=== PATIENT | female | born 1945 | race Caucasian/White ===

== ENCOUNTER 2019-09-15 11:20 | Inpatient (IN) | payer MEDICARE, BC ==
[~2019-09-15] VITALS: Ht 162.6 cm; Wt 74.3 kg
[2019-09-15] VITALS (211 sets, daily range): BP systolic 107; BP diastolic 89; PULSE 65; TEMP 98.4; O2SAT 86–100
[~2019-09-15 11:20] MED LIST: ASPIRIN 32325 MG/TAB PO; CAPOTEN 50MG50 MG PO; CAPOTEN12.5 MG PO; DILANTIN 100MG100 MG PO; FIORINAL 325 MG1 CAP PO; LIPITOR; LIPITOR 10MG10 MG PO; MULTIPLE VITAMI1 CAP PO; PLENDIL 5MG TAB5 MG PO; VITAMIN D 1001000 IU PO
[2019-09-15 12:04] LABS: BASO % 0.2 % (0.0-2.0); HEMATOCRIT 45.2 % (37.0-47.0); HEMOGLOBIN 15.1 g/dl (12.5-16.0); LYMPH # 1.3 (1.2-3.4); LYMPH % 6.9 % (20.0-51.0); MEAN CELL VOLUME 92 fl (80.0-100.0); MEAN CORPUSCULAR HEMOGLOBIN 31 pg (27.0-31.0); MEAN CORPUSCULAR HGB CONC 33 g/dl (33.0-37.0); MEAN PLATELET VOLUME 9.2 fl (7.4-10.4); MONO % 5.4 % (1.7-9.3); PLATELET COUNT 278 K/mm3 (130-400); RED BLOOD COUNT 4.89 M/mm3 (4.10-5.30); REDCELL DISTRIBUTION WIDTH-CV 15.9 % (11.5-14.5)
[2019-09-15 12:09] LABS: PROTHROMBIN TIME 11.3 SECONDS (9.7-12.8)
[2019-09-15 12:15] LABS: ALBUMIN 4.5 gm/dL (3.5-5.0); BILIRUBIN,TOTAL 0.5 mg/dL (0.0-1.0); C-REACTIVE PROTEIN 6.1 mg/dL (0.0-0.9); CALCIUM 9.6 mg/dL (8.4-10.2); CREATININE, serum 3.15 (0.52-1.25); POTASSIUM 3.6 mmol/L (3.4-5.0); TOTAL PROTEIN 7.5 gm/dL (6.4-8.2)
[2019-09-15] MEDS ORDERED: PLAVIX 75MG TAB75 MG PO (12:26)
[2019-09-15 12:30] LABS: TROPONIN-I 0.105 ng/mL (0.000-0.035)
--- NOTE | 2019-09-15 14:30 | NUR ---
CALLED PLACED TO DR MARTIN. BLOOD CULTURES DRAWN AND DAPTOMYCIN GIVEN. ORDERS RECIEVED TO DC CENTRAL LINE, OK FOR NO IV ACCESS, AND TRANSFER PT TO FLOOR. CONTINUE ALL CURRENT ORDERS. FREELANCE PHOTOGRAPHER NOTIFIED OF NEED FOR MEDICAL BED.
--- NOTE | 2019-09-15 15:27 | NUR ---
1445: REMOVED PT'S LEFT FEMORAL CENTRAL LINE WITH STERILE TECHNIQUE. PRESSURE HELD FOR FIVE MINUTES. 1500: PT LAID FLAT FOR 15 MINUTES. NO SIGNS OF BLEEDING OR HEMATOMA. PT'S HOB RAISED TO 25 DEGREES. 1515: SITE C/D/I, AND NO SIGNS OF HEMATOMA. PT HEAD OF BEAD RAISED TO 50. WILL CONTINUE TO MONITOR.
--- NOTE | 2019-09-15 16:00 | NUR ---
PT ARRIVED FROM ER. PT STOOD AND PIVOTTED TO BED. PT'S IS AXOX3. PT'S VSS. PT ORIENTED TO ROOM AND FLOOR. DR LEMON NOTIFIED OF ARRIVAL. WILL CONTNUE TO MONITOR AND ASSESS.
--- NOTE | 2019-09-15 16:45 | NUR ---
PT HAD A MODERATE BLOODY STOOL UPON ARRIVAL TO ICU. NOTIFIED.
[2019-09-16] VITALS (481 sets, daily range): BP systolic 86–106; BP diastolic 40–61; PULSE 58–77; TEMP 97.4–99; O2SAT 64–100
[2019-09-16 09:34] LABS: BASO % 0.2 % (0.0-2.0); EOS % 0.1 % (0-4.0); GRAN # 8.9 (1.4-6.5); LYMPH # 1.6 (1.2-3.4); LYMPH % 14.1 % (20.0-51.0); MEAN CELL VOLUME 94 fl (80.0-100.0); MEAN CORPUSCULAR HGB CONC 33 g/dl (33.0-37.0); MEAN PLATELET VOLUME 9.5 fl (7.4-10.4); MONO # 0.5 (0.1-0.6); MONO % 4.2 % (1.7-9.3); REDCELL DISTRIBUTION WIDTH-CV 15.9 % (11.5-14.5)
[2019-09-16 09:42] LABS: HEMATOCRIT 32.8 % (37.0-47.0); HEMOGLOBIN 10.9 g/dl (12.5-16.0); MEAN CORPUSCULAR HEMOGLOBIN 31 pg (27.0-31.0); PLATELET COUNT 146 K/mm3 (130-400)
[2019-09-16 09:47] LABS: PROTHROMBIN TIME 11.8 SECONDS (9.7-12.8)
[2019-09-16 09:57] LABS: ALBUMIN 2.8 gm/dL (3.5-5.0); BILIRUBIN,TOTAL 0.3 mg/dL (0.0-1.0); CALCIUM 7.6 mg/dL (8.4-10.2); CREATININE, serum 2.17 (0.52-1.25); POTASSIUM 3.3 mmol/L (3.4-5.0); TOTAL PROTEIN 5.2 gm/dL (6.4-8.2)
[2019-09-16 10:13] LABS: TROPONIN-I 0.073 ng/mL (0.000-0.035)
[2019-09-16 11:08] LABS: COLLECTION METHOD CLEAN CATCH
[2019-09-16 11:17] LABS: MUCOUS Present /lpf; PH 5 (5-8); SQUAMOUS EPITHELIAL 0-2 /hpf; URINE APPEARANCE Cloudy; URINE BACTERIA Rare /hpf; URINE BILIRUBIN Negative (NEGATIVE); URINE BLOOD 2+ (NEGATIVE); URINE COLOR Yellow; URINE GLUCOSE Negative (NEGATIVE); URINE KETONE Negative (NEGATIVE); URINE LEUKOCYTE ESTERASE Negative (NEGATIVE); URINE NITRATE Negative (NEGATIVE); URINE PROTEIN(semi-quant) Negative (NEGATIVE); URINE RBC 0-2 /hpf; URINE UROBILINOGEN Negative (NEGATIVE)
--- NOTE | 2019-09-16 11:25 | NUR ---
1108: REPORT CALLED TO DAVID RN. ALL QUESTIONS ANSWERED. 1120: PT TAKEN UP TO 318 BY WHEEL CHAIR. PT'S BELONGINGS TAKEN WELL. DAVID BEDSIDE TO ACCEPT PT.
--- NOTE | 2019-09-16 11:30 | NUR ---
Patient to room 318 from ICU by wheelchair. Oriented patient to room and call light. Patient is A&O and reporting pain in right leg and abdomen. Did not request pain medication. VSS. 2L NC O2 100%, decreased O2 to 1L. Will reassess. No reported SOB. IV RT wrist, old drainage, patent, fluids infusing. Generalized brusing all over body. Patient instructed to call nursing staff for assistance with ambulation. No further needs expressed from patient. Call light within reach
--- NOTE | 2019-09-16 14:56 | NUR ---
Patient lives at home with her LICHA Miller (phone: [phone]) in [place], [place] and plans return home however, patient's is also in the hospital at [facility]. Patient is typically independent with daily living activities and has no durable medical equipment usages or anticipated needs at this time. Patient's son Joseluis Miller (phone: [phone]) is supportive of patient as needed. Patient's primary care physciain is Roberto Smiley, her [facility] is [facility], and she does have advance directives for healthcare completed and is a DNR. No further needs at this time and social media manager will follow as needed.
--- NOTE | 2019-09-16 18:04 | NUR ---
Patient sitting up in bed waiting on dinner to arrive. A&O. VSS. IV CDI coban covering, fluids infusing. Patient has had 2 small blood tinged BM's since arriving on the floor from the ICU. Reporting pain in right legs and buttocks. Stage II ulcer right buttocks, opento air. O2 weened off. Patient O2 sats 98 on room air. No reported SOB. No further needs expressed from patient. Call light within reach
--- NOTE | 2019-09-16 19:50 | NUR ---
Shift assessment complete. Pt resting in bed, awake, a&o, cooperative c cares. Pt denies pain or any other c/o at this time. IV patent. Tele in place. Pt denies further needs at this time. Call light in reach, bed alarm on. Will continue to monitor.
[2019-09-17] VITALS (7 sets, daily range): BP systolic 118–148; BP diastolic 52–67; PULSE 60–83; TEMP 97.9–98.7
[2019-09-17 06:06] LABS: INR 1.1 (0.8-3.0); PROTHROMBIN TIME 12.4 SECONDS (9.7-12.8)
[2019-09-17 06:10] LABS: ALBUMIN 2.7 gm/dL (3.5-5.0); BILIRUBIN,TOTAL 0.3 mg/dL (0.0-1.0); CREATININE, serum 1.55 (0.52-1.25); TOTAL PROTEIN 5.1 gm/dL (6.4-8.2)
[2019-09-17 06:12] LABS: BASO % 0.2 % (0.0-2.0); EOS % 0.3 % (0-4.0); GRAN # 7.2 (1.4-6.5); GRAN % 74.8 % (42.2-75.2); LYMPH # 1.8 (1.2-3.4); LYMPH % 18.4 % (20.0-51.0); MEAN CELL VOLUME 92 fl (80.0-100.0); MEAN CORPUSCULAR HGB CONC 34 g/dl (33.0-37.0); MEAN PLATELET VOLUME 9.7 fl (7.4-10.4); MONO # 0.5 (0.1-0.6); MONO % 5.5 % (1.7-9.3); PLATELET COUNT 165 K/mm3 (130-400); RED BLOOD COUNT 2.74 M/mm3 (4.10-5.30); REDCELL DISTRIBUTION WIDTH-CV 15.7 % (11.5-14.5)
[2019-09-17 06:13] LABS: HEMATOCRIT 25.1 % (37.0-47.0); HEMOGLOBIN 8.5 g/dl (12.5-16.0); MEAN CORPUSCULAR HEMOGLOBIN 31 pg (27.0-31.0)
--- NOTE | 2019-09-17 09:53 | NUR ---
Pt is awake and A/Ox4, laying in bed. Denies any pain or discomfort. IVF are infusing into right wrist. Per OT pt had episode of incontient loose stools this AM. Pt now resting back in bed. Denies any other needs.
--- NOTE | 2019-09-17 11:16 | NUR ---
SW met with the patient to review discharge plan and to discuss OT's recommendation of SNF. The patient reported no to a fdc facility. SW then discussed home health. The patient stated no to home health also. The patient reports that her is coming home from [facility] today and that she just wants to get home to take care of him. SW encouraged the patient to work with PT. The patient stated bring it on. SW to continue to follow.
--- NOTE | 2019-09-17 15:12 | NUR ---
Pt incontient of stool, cleaned and new linens applied. Stool is brown and loose. Pt repositioned in bed.
--- NOTE | 2019-09-17 15:26 | NUR ---
SW followed up with the patient to review PT's recommendation of SNF and not being ready to return home. The patient reports that she is not going anywhere. She states that she would be able to get up and go to the restroom on her own at home. SW discussed home health services again. The patient states no, due to it not being covered. SW educated the patient on how she would be covered at SNF and for home health. The patient reports that she wants to return home, but would think about it tonight. SW to follow up with the patient tomorrow morning and will continue to follow.
--- NOTE | 2019-09-17 18:32 | NUR ---
Pt had an overall uneventful day. Denies any needs.
[2019-09-17 18:58] LABS: HEMATOCRIT 34.6 % (37.0-47.0); HEMOGLOBIN 11.5 g/dl (12.5-16.0)
--- NOTE | 2019-09-17 19:45 | NUR ---
Shift assessment complete. Pt resting in bed, awake, a&o c int confused/forgetfull statements, cooperative c cares. Pt c/o cont abd pain; provided c PRN pain med per pt req. Pt denies any other c/o. IV patent. Tele in place. Pt s further needs. Call light in reach, bed alarm on. Will continue to monitor.
[2019-09-18 04:17] VITALS: BP 145/59; PULSE 66; TEMP 98.1
--- NOTE | 2019-09-18 08:00 | NUR ---
Patient is sitting up in recliner watching TV. Has flat affect. Denies pain. Respirations are even and nonlabored. Call light and personal items are within reach.
[2019-09-18 08:07] VITALS: BP 142/73; PULSE 59; TEMP 97.5
[2019-09-18 09:09] LABS: BASO % 0.3 % (0.0-2.0); EOS # 0.1 (0.0-0.7); EOS % 1.3 % (0-4.0); GRAN # 4.5 (1.4-6.5); GRAN % 70.1 % (42.2-75.2); HEMOGLOBIN 10.6 g/dl (12.5-16.0); LYMPH # 1.4 (1.2-3.4); LYMPH % 21.4 % (20.0-51.0); MEAN CELL VOLUME 92 fl (80.0-100.0); MEAN CORPUSCULAR HEMOGLOBIN 31 pg (27.0-31.0); MEAN CORPUSCULAR HGB CONC 34 g/dl (33.0-37.0); MEAN PLATELET VOLUME 9.8 fl (7.4-10.4); MONO # 0.4 (0.1-0.6); MONO % 6.4 % (1.7-9.3); PLATELET COUNT 162 K/mm3 (130-400); RED BLOOD COUNT 3.45 M/mm3 (4.10-5.30); REDCELL DISTRIBUTION WIDTH-CV 15.6 % (11.5-14.5)
[2019-09-18 09:17] LABS: PROTHROMBIN TIME 11.7 SECONDS (9.7-12.8)
[2019-09-18] MEDS ORDERED: ASPIRIN 81M81 MG/TA2 PO (09:17)
[2019-09-18] MEDS ORDERED: PROTONIX 40MG T40 MG PO (09:18)
[2019-09-18 09:19] LABS: HEMATOCRIT 31.6 % (37.0-47.0)
[2019-09-18] MEDS ORDERED: PLENDIL10 MG PO (09:27)
[2019-09-18] MEDS ORDERED: PRINIVIL20 MG PO (09:27)
[2019-09-18 09:30] LABS: ALBUMIN 2.9 gm/dL (3.5-5.0); BILIRUBIN,TOTAL 0.5 mg/dL (0.0-1.0); MAGNESIUM 1.4 mg/dL (1.6-2.3); POTASSIUM 3.3 mmol/L (3.4-5.0); TOTAL PROTEIN 5.5 gm/dL (6.4-8.2)
--- NOTE | 2019-09-18 09:36 | NUR ---
The patient's son, Joseluis, contacted AYDEE to discuss his concerns with the patient returning home and him wanting post-acute rehab for the patient. He states that him and the patient's will be coming up to the hospital this morning to talk to the visit and will notify SW when they arrive. SW to follow up with the patient and her family and will continue to follow.
--- NOTE | 2019-09-18 11:05 | NUR ---
The patient's and son (Joseluis) arrived at the hospital. SW met with the patient, patient's , and son and discussed PT/OT's recommendation of SNF and not being safe to return home. The patient's and son then discussed their concerns of her returning home. The patient was then agreeable to SNF. AYDEE presented and explained the Patient Choice Form and provided them with Medicare.gov's list of nursing homes. The patient and her family preferred 1) [facility] 2) [facility]. Patient Choice Form signed by the patient and she was provided a copy. AYDEE contacted and faxed a referral to Tameka at [facility]. AYDEE consulted IPR Director, Pina. SW awaiting their screens.
[2019-09-18 12:06] VITALS: BP 150/64; PULSE 63; TEMP 98.2
--- NOTE | 2019-09-18 13:47 | NUR ---
Tameka, at [facility], reports that they are able to accept the patient. AYDEE informed the patient and the patient's son, Joseluis, via phone. The patient is to discharge today, 09/18, to [facility] for a skilled stay. Transportation was arranged for 1530, via [facility]. AYDEE informed the patient, RN, and the patient's son via phone. They were all in agreeance to the time. AYDEE also presented and explained the IM form to the patient. The patient verbalized understanding, signed, and she was provided a copy. No additional needs at this time.
--- NOTE | 2019-09-18 18:36 | NUR ---
Patient discharged to retirement facility at 1600 via facility transportation. Personal belongings sent with patient.
== END 2019-09-18 16:00 | DRG 871 ==
LOC: COL.ER 11:20 → ICU 13:29 → MEDICAL 09-16 11:53
PROVIDERS: Emergency Medicine; Physician Assistant; ADMIT Internal Medicine
DX: A41.9 Sepsis, unspecified organism (principal); R57.1 Hypovolemic shock; I21.4 Non-ST elevation (NSTEMI) myocardial infarction; N17.9 Acute kidney failure, unspecified; D62 Acute posthemorrhagic anemia; K52.9 Noninfective gastroenteritis and colitis, unspecified; R65.20 Severe sepsis without septic shock; E78.00 Pure hypercholesterolemia, unspecified; I10 Essential (primary) hypertension; G40.909 Epilepsy, unspecified, not intractable, without status epilepticus; F17.210 Nicotine dependence, cigarettes, uncomplicated; E87.6 Hypokalemia; E83.42 Hypomagnesemia; Z79.82 Long term (current) use of aspirin; Z79.02 Long term (current) use of antithrombotics/antiplatelets; Z99.81 Dependence on supplemental oxygen
CPT/HCPCS: 99223-AI; 99232-AI; 99233-AI; 99239; C9113; J1720; J2405; J2543; J3480; J7030

== ENCOUNTER → 2023-01-04 | Outpatient (CLI) | payer MEDICARE, BC ==
[~2023-01-04] MED LIST changes: +ASPIRIN 81M81 MG/TA2 PO; +PLAVIX 75MG TAB75 MG PO; +PLENDIL10 MG PO; +PRINIVIL20 MG PO; +PROTONIX 40MG T40 MG PO
== END ==
LOC: COL.RAD 10:23
DX: I67.1 Cerebral aneurysm, nonruptured (principal); R90.82 White matter disease, unspecified; G31.9 Degenerative disease of nervous system, unspecified
CPT/HCPCS: Q9967

== ENCOUNTER 2023-07-14 13:54 | Inpatient (IN) | payer MEDICARE, BC ==
[~2023-07-14] VITALS: Ht 167.6 cm; Wt 82.2 kg
[2023-07-14] VITALS (355 sets, daily range): BP systolic 133; BP diastolic 62; PULSE 72; TEMP 97.8; O2SAT 90–100
[~2023-07-14 13:54] MED LIST changes: -LIPITOR 10MG10 MG PO; +LIPITOR 40MG TA40 MG PO
[2023-07-14 15:54] LABS: BASO % 0.4 % (0.0-2.0); GRAN # 9.6 K/mm3 (1.4-6.5); GRAN % 85.1 % (42.2-75.2); HEMATOCRIT 47.3 % (37.0-47.0); HEMOGLOBIN 15.3 g/dl (12.5-16.0); LYMPH # 0.6 K/mm3 (1.2-3.4); LYMPH % 4.9 % (20.0-51.0); MEAN CELL VOLUME 96 fl (80.0-100.0); MEAN CORPUSCULAR HEMOGLOBIN 31 pg (27-31); MEAN CORPUSCULAR HGB CONC 32 g/dl (33.0-37.0); MEAN PLATELET VOLUME 9.3 fl (7.4-10.4); MONO % 8.9 % (1.7-9.3); PLATELET COUNT 187 K/mm3 (130-400); RED BLOOD COUNT 4.95 M/mm3 (4.10-5.30); REDCELL DISTRIBUTION WIDTH-CV 15.9 % (11.5-14.5)
[2023-07-14 16:03] LABS: INR 1.4 (0.8-3.0); PROTHROMBIN TIME 15.5 SECONDS (9.7-12.8)
[2023-07-14 16:14] LABS: COLLECTION METHOD CLEAN CATCH
[2023-07-14 16:17] LABS: ALBUMIN 3.3 gm/dL (3.4-4.8); BILIRUBIN,TOTAL 0.4 mg/dL (0.2-1.2); CALCIUM 9.2 mg/dL (8.4-10.2); CREATININE, serum 1.52 mg/dL (0.57-1.11); TOTAL PROTEIN 5.5 gm/dL (6.2-8.1)
[2023-07-14 16:28] LABS: TROPONIN-I 0.077 ng/mL (0.00-0.033)
[2023-07-14 16:34] LABS: PH 5.5 (5.0-8.5); URINE APPEARANCE Clear (CLEAR/HAZY); URINE BLOOD Negative (NEGATIVE); URINE COLOR Amber (YELLOW); URINE GLUCOSE Negative (NEGATIVE); URINE KETONE TRACE (NEGATIVE); URINE NITRATE Negative (NEGATIVE); URINE PROTEIN(semi-quant) 2+ (NEGATIVE); URINE UROBILINOGEN 0.2 E.U/dL (0.2-1.0)
[2023-07-14 16:49] LABS: MUCOUS Present (NOT PRESENT); URINE BACTERIA Rare /hpf (NONE SEEN)
[2023-07-14 16:50] LABS: AMORPHOUS CRYSTAL Present (NOT PRESENT); SQUAMOUS EPITHELIAL 0-2 /hpf (0-10); URINE RBC 0-2 /hpf (0-2)
[2023-07-14 17:42] LABS: CLOSTRIDIUM DIFF A/B NEG
--- NOTE | 2023-07-14 19:12 | NUR ---
PT ARRIVED TO ICU 2 AT 1755. PT TRANSFERED TO ICU BED X2 ASSIST. PT SOILD ON ARRIVAL. INCONTINENT CARE PROVIDED. ORDER FROM DR. LEMON FOR RECTAL TUBE AND LIQUID STOOL WAS CONTINUOUSLY LEAKING. PT HAS X2 DEEP TISSUE ULCERS TO COCCYX. PASS ON IN REPORT TO ASK FOR WOUND CONSULT ONE HAS TUNNELING. ALLYVN PLACED. PT AND PT DO NOT HAVE HOME MED LIST AND ARE UNSURE OF MEDICATIONS. DR. TABOR PCP WILL NEED TO GET COPY IN AM. PT PLACED ON CONTACT PRECAUTIONS UNTIL GI PANEL COMES BACK. SEIZURE PRECAUTIONS, PADS PLACED TO BED. ALL BELONGINGS TAKEN HOME BY THEY WERE SOLID. GLASSES ONLY BELONGINGS HERE.
--- NOTE | 2023-07-14 22:00 | NUR ---
RECTAL TUBE EXPELLED BY PATIENT, NOT REINSERTED PER PT'S REQUEST. PT CONTINUES TO HAVE BLOODY SEEPAGE OF STOOL, HOWEVER MINIMAL AT THIS TIME. WILL CONTINUE WITH FREQUENT INCONTIENT CARE AND CLEANSING.
[2023-07-14] MEDS ORDERED: PRINIVIL20 MG PO (22:31)
[2023-07-14] MEDS ORDERED: KRILL OIL 5001 EACH PO (22:32)
[2023-07-14 23:36] LABS: HEMATOCRIT 41.9 % (37.0-47.0); HEMOGLOBIN 13.9 g/dl (12.5-16.0)
[2023-07-15] VITALS (614 sets, daily range): BP systolic 118–139; BP diastolic 46–75; PULSE 70–87; TEMP 97.8–99.3; O2SAT 67–100
[2023-07-15 05:56] LABS: HEMATOCRIT 43.1 % (37.0-47.0); HEMOGLOBIN 14.1 g/dl (12.5-16.0); INR 1.1 (0.8-3.0); MEAN CELL VOLUME 94 fl (80.0-100.0); MEAN CORPUSCULAR HEMOGLOBIN 31 pg (27-31); MEAN CORPUSCULAR HGB CONC 33 g/dl (33.0-37.0); MEAN PLATELET VOLUME 9.7 fl (7.4-10.4); PLATELET COUNT 158 K/mm3 (130-400); PROTHROMBIN TIME 11.7 SECONDS (9.7-12.8); RED BLOOD COUNT 4.58 M/mm3 (4.10-5.30); REDCELL DISTRIBUTION WIDTH-CV 15.9 % (11.5-14.5)
[2023-07-15 06:08] LABS: ALBUMIN 2.7 gm/dL (3.4-4.8); BILIRUBIN,TOTAL 0.9 mg/dL (0.2-1.2); CALCIUM 8.4 mg/dL (8.4-10.2); CREATININE, serum 1.34 mg/dL (0.57-1.11); MAGNESIUM 2.1 mg/dL (1.6-2.6); POTASSIUM 4.1 mmol/L (3.5-4.5); TOTAL PROTEIN 5.1 gm/dL (6.2-8.1)
[2023-07-15 06:19] LABS: ANISOCYTOSIS 1+; BAND 20 % (0-10); LYMPHOCYTE 9 % (20.0-51.0); NEUTROPHILS 65 % (42.0-75.2); PLATELET ESTIMATE NORMAL (NORMAL)
[2023-07-15 06:20] LABS: HYPOCHROMIA 1+
[2023-07-15 06:21] LABS: OVALOCYTES 1+; TROPONIN-I 0.072 ng/mL (0.00-0.033)
--- NOTE | 2023-07-15 09:29 | NUR ---
Initial visit attempt; Airport Control Operator left card offering Spiritual Care and God's blessings. Patient undergoing a test at this time.
--- NOTE | 2023-07-15 10:49 | NUR ---
PT REQUESETING TO GO OUTSIDE TO SMOKE SEVERAL TIMES THIS MORNING. THIS NURSE REMINDED PT THAT WE CAN NOT GO OUTSIDE TO SMOKE. NICOTINE PATCH OFFERED AGAIN, PT DENIES. PT AT BEDSIDE CURRENTLY WHICH SEEMS TO HELP PTS ANXIETY/ NEED TO GO OUTSIDE TO SMOKE. PT RESTING CURRENTLY.
--- NOTE | 2023-07-15 12:53 | NUR ---
SW met with pt's son, Joseluis and her , LICHA in room on medicine floor while waiting for pt to transfer from the ICU. FOOD SELECTOR discussed SNF Placement with pt's , and son. They both agreed that SNF Placement is a better option for pt than returning home, son expressing concerns that pt's has declining health. indicated that [facility] SNf is pt's preference. FOOD SELECTOR gave them a list of SNF's from the Medicare.gov website for their review. Pt has already had a speech eval completed by staff today in the ICU. Advised and son, once PT/OT have completed their evals, clinicals will be faxed to the facility for review. No other concerns noted.
--- NOTE | 2023-07-15 13:05 | NUR ---
1220 NURSE TO NURSE REPORT GIVEN TO MACKENZIE ON SURGICAL. PT TRANSFER ORDERS. PT TRANSFERED TO BED 326. PT LEFT UNIT ON SURGICAL BED ACCOMPANIED BY RN AT 1240. BOGDAN AWARE AND WAITING IN NEW ROOM.
--- NOTE | 2023-07-15 13:08 | NUR ---
1000 CALL TO [facility] FOR CONSULT WITH TOMAS CRUZ APRN. MESSAGE LEFT TO CALL HOSPITAL BACK INREGARDS TO PT NEEDING CONSULT FOR WOUNDS. SURGICAL NURSE AWARE THAT AN ATTEMPT WAS MADE.
--- NOTE | 2023-07-15 13:37 | NUR ---
SW faxed pt's clinicals to the regulatory coordinator, Donnell @ [facility] [place] [facility], # [phone], to review. Assigned SW has been briefed on disposition. No other concerns noted.
--- NOTE | 2023-07-15 13:52 | NUR ---
Patient to room 326 from ICU, report from nurse LINDA. Patient awake. Intermittent cramping abdominal pain reported. Patient reports not sleeping well last night & sleeping intermittently. Gi consult complted with . Patient son & spouse at bedside. Picc to DAYNE. INT x2 in LFA removed. Scds ble. Full bed bath completed. Pericares given, melgar cares given. New allyven foam dressing to coccyx. high fall risk protocol followed. Emmanuel benz
--- NOTE | 2023-07-15 15:44 | NUR ---
SW received a telephone call from Donnell @ [facility], ph# [phone], this afternoon. Pt has been accepted for bed on Tuesday. Will leave weekend SW a note to fax updated clinicals to facility over the weekend. No other concerns noted.
--- NOTE | 2023-07-15 18:11 | NUR ---
Patient resting in bed. 2 assist to bedside commode, pericares given. Continues to have loose liquid blood tinged output. Specialized air mattress applied to bed. Patient very pleased with matress on bed. Picc to RUE with IVF, Tolerating clears without nausea. Scds. Will monitor
[2023-07-16] VITALS (9 sets, daily range): BP systolic 129–151; BP diastolic 48–62; PULSE 71–87; TEMP 97.7–99.5
--- NOTE | 2023-07-16 06:22 | NUR ---
PT has periods of intermitten confusion, was yelling out this am and trying to crawl out of bed, bed alarm on, when asked, pt knew where she was, just wanted to get out of bed. no c/o pain tonight, IVF infusing per PICC @ 125 cc/hr. melgar patent/secure. low grade temp of 99.5.
[2023-07-16 06:28] LABS: MEAN CELL VOLUME 94 fl (80.0-100.0); MEAN CORPUSCULAR HGB CONC 34 g/dl (33.0-37.0); MEAN PLATELET VOLUME 9.8 fl (7.4-10.4); PLATELET COUNT 127 K/mm3 (130-400); REDCELL DISTRIBUTION WIDTH-CV 15.7 % (11.5-14.5)
[2023-07-16 06:29] LABS: INR 1.4 (0.8-3.0)
[2023-07-16 06:30] LABS: HEMATOCRIT 31.9 % (37.0-47.0); HEMOGLOBIN 10.7 g/dl (12.5-16.0); MEAN CORPUSCULAR HEMOGLOBIN 31 pg (27-31)
[2023-07-16 06:40] LABS: BILIRUBIN,TOTAL 0.5 mg/dL (0.2-1.2); CALCIUM 7.9 mg/dL (8.4-10.2); CREATININE, serum 0.98 mg/dL (0.57-1.11); POTASSIUM 3.5 mmol/L (3.5-4.5); TOTAL PROTEIN 4.1 gm/dL (6.2-8.1)
[2023-07-16 06:58] LABS: BAND 36 % (0-10); LYMPHOCYTE 12 % (20.0-51.0); NEUTROPHILS 44 % (42.0-75.2)
[2023-07-16 06:59] LABS: ANISOCYTOSIS 1+
--- NOTE | 2023-07-16 14:32 | NUR ---
Patient continue to sit up in chair.Her spouse has visited. Rashawn was DC with ivan provided & she tolerated well. Hospitalist rounded & plan of care reviewed. Patient tolerated her regular lunch without problems. Pain maanged at this time. WIll monitor.
--- NOTE | 2023-07-16 17:50 | NUR ---
Patient sitting up in chair. Refusing to yet get back into bed. More comfortable in chair. Cnas provided incontince cares. She did well with dinner tray. Will monitor
--- NOTE | 2023-07-16 19:04 | NUR ---
Patient assisted back to bed, high fall risk safety reviewed, patient attemted to get to bed on her own. New jailyn and ivan mckay
[2023-07-17] VITALS (9 sets, daily range): BP systolic 121–157; BP diastolic 51–67; PULSE 59–87; TEMP 98–98.4
[2023-07-17 07:15] LABS: HEMOGLOBIN 10.4 g/dl (12.5-16.0); MEAN CELL VOLUME 91 fl (80.0-100.0); MEAN CORPUSCULAR HEMOGLOBIN 31 pg (27-31); MEAN CORPUSCULAR HGB CONC 34 g/dl (33.0-37.0); MEAN PLATELET VOLUME 9.8 fl (7.4-10.4); PLATELET COUNT 121 K/mm3 (130-400); RED BLOOD COUNT 3.38 M/mm3 (4.10-5.30); REDCELL DISTRIBUTION WIDTH-CV 15.3 % (11.5-14.5)
[2023-07-17 07:16] LABS: HEMATOCRIT 30.7 % (37.0-47.0)
[2023-07-17 07:26] LABS: INR 1.2 (0.8-3.0); PROTHROMBIN TIME 12.5 SECONDS (9.7-12.8)
[2023-07-17 07:32] LABS: BILIRUBIN,TOTAL 0.5 mg/dL (0.2-1.2); CREATININE, serum 0.85 mg/dL (0.57-1.11); TOTAL PROTEIN 4.4 gm/dL (6.2-8.1)
[2023-07-17 08:46] LABS: BAND 24 % (0-10); LYMPHOCYTE 6 % (20.0-51.0); NEUTROPHILS 69 % (42.0-75.2); PLATELET ESTIMATE DECREASED (NORMAL)
[2023-07-18] VITALS (10 sets, daily range): BP systolic 115–158; BP diastolic 58–69; PULSE 80–92; TEMP 97.8–99.2
--- NOTE | 2023-07-18 08:50 | NUR ---
Patient up to the bathroom this am, she continues to have loose liquid stool. pericares provided for incontinece cares. Patient is weak, she was unable to ambulate around bed to chair. Chair was brought to patient. Picc to E. She tolerated breakfast without nausea. Tylenol for pain this am. Will monitor
[2023-07-18] MEDS ORDERED: ANTI-DIARRHEAL2 MG PO (11:07)
[2023-07-18 12:26] LABS: CALCIUM 7.9 mg/dL (8.4-10.2); CREATININE, serum 0.78 mg/dL (0.57-1.11)
[2023-07-18 12:37] LABS: POTASSIUM 2.6 mmol/L (3.5-4.5)
[2023-07-18 13:01] LABS: HEMOGLOBIN 10.6 g/dl (12.5-16.0); MEAN CELL VOLUME 91 fl (80.0-100.0); MEAN CORPUSCULAR HEMOGLOBIN 31 pg (27-31); MEAN CORPUSCULAR HGB CONC 34 g/dl (33.0-37.0); MEAN PLATELET VOLUME 9.7 fl (7.4-10.4); PLATELET COUNT 146 K/mm3 (130-400); RED BLOOD COUNT 3.41 M/mm3 (4.10-5.30); REDCELL DISTRIBUTION WIDTH-CV 15.3 % (11.5-14.5)
[2023-07-18 13:23] LABS: BAND 16 % (0-10); LYMPHOCYTE 18 % (20.0-51.0); NEUTROPHILS 60 % (42.0-75.2); PLATELET ESTIMATE NORMAL (NORMAL)
--- NOTE | 2023-07-18 13:29 | NUR ---
transit worker was notified by Dr. Padilla, patient could be discharged today to SNF. transit worker met with patient to discuss discharge planning to [facility]. Patient understood and agreed. transit worker reviewed important message from Medicare with patient. Patient verbalized she understood her rights and did not have any questions or concerns at this time. transit worker made a copy of the signed form, placed the original in the patient's file and provided the copy to patient. transit worker contacted Tameka Ortiz with [facility]. Tameka expressed they would be able to accept but would like updates from over the weekend. transit worker faxed updates to Tameka Ortiz at [facility]. transit worker was notified by patient's nurse that patient's potassium is very low and would not be able to discharge today. Patient's nurse expressed she would follow up with patient to ensure she understood. transit worker updated [facility] and will continue to follow. Discharge Plan: SNF
--- NOTE | 2023-07-18 13:50 | NUR ---
MADE AWARE OF MG RESULTS & ORDERS OBTAINED.
--- NOTE | 2023-07-18 15:05 | NUR ---
MADE AWARE OF K+ BEING 3.0 YESTERDAY AND NO LABS BEING ORDERED TODAY. BMP ORDERED
--- NOTE | 2023-07-18 15:07 | NUR ---
MADE AWARE OF CRITICAL K+ OF 2.6. K+ PER PROTOCOL.
--- NOTE | 2023-07-18 15:08 | NUR ---
CALLED TO GILBERTO IF HE WOULD LIKE MG & CBC TODAY VERSUS WAITING UNTIL AM. ORDERS OBTAINED.
--- NOTE | 2023-07-18 16:50 | NUR ---
PT ATTEMPTING TO GET OUT RECLINER BY HERSELF & STATES SHE NEEDS TO USE TO RESTROOM. PT ASSISTED TO RESTROOM WITH 2X ASSIST & HAS LOOSE BLOODY STOOL. PT NOW BACK IN CHAIR WITH CHAIR ALARM ON & CALL LIGHT IN REACH. DENYING FURTHER NEEDS.
--- NOTE | 2023-07-18 19:12 | NUR ---
Patient sitting up in chair. K+ to be rechecked in 3 hours per protocol. She fininshed her last dose. She tolerated dinner. 2 assist to the bathroom. INcontince cares provided. REport to alexandra
--- NOTE | 2023-07-18 20:00 | NUR ---
PT A&O SITTING IN RECLINER. VSS. DENYING ANY PAIN OR N/V AT THIS TIME. SHIFT ASSESSMENT COMPLETE & HS MEDS GIVEN. PICC TO RIGHT UPPER ARM. CHAIR ALARM ON & FALL PRECAUTIONS IN PLACE. PT DENYING FURTHER NEEDS AT THIS TIME.
--- NOTE | 2023-07-18 21:45 | NUR ---
PT INTERMITTENTLY CONFUSED. ASSISSTED TO BED. SCDS ON. BED ALARM ON & FALL PRECAUTIONS IN PLACE. CALL LIGHT IN REACH & DENYING FURTHER NEEDS.
[2023-07-19] VITALS (8 sets, daily range): BP systolic 126–158; BP diastolic 60–69; PULSE 82–89; TEMP 98–99
--- NOTE | 2023-07-19 06:08 | NUR ---
PT ASSISTED TO COMMODE THROUGHOUT THE NIGHT & HAD 2 MORE LOOSE BLOODY STOOLS. C/O SOME PAIN - GIVEN PRN OXY. PT AWAKE IN BED WATCHING TV WITH FALL PRECAUTIONS IN PLACE & CALL LIGHT IN REACH. DENYING FURTHER NEEDS.
[2023-07-19 06:28] LABS: MEAN CELL VOLUME 89 fl (80.0-100.0); MEAN CORPUSCULAR HGB CONC 35 g/dl (33.0-37.0); MEAN PLATELET VOLUME 9.1 fl (7.4-10.4); PLATELET COUNT 133 K/mm3 (130-400); REDCELL DISTRIBUTION WIDTH-CV 15.5 % (11.5-14.5)
[2023-07-19 06:30] LABS: HEMATOCRIT 28.6 % (37.0-47.0); HEMOGLOBIN 9.9 g/dl (12.5-16.0); MEAN CORPUSCULAR HEMOGLOBIN 31 pg (27-31)
[2023-07-19 06:45] LABS: ALBUMIN 1.7 gm/dL (3.4-4.8); CALCIUM 7.9 mg/dL (8.4-10.2); CREATININE, serum 0.72 mg/dL (0.57-1.11); MAGNESIUM 1.5 mg/dL (1.6-2.6); PHOSPHOROUS 1.2 mg/dL (2.3-4.7); POTASSIUM 3.8 mmol/L (3.5-4.5)
[2023-07-19 07:06] LABS: BAND 29 % (0-10); LYMPHOCYTE 3 % (20.0-51.0); METAMYELOCYTE 1 % (0-0); NEUTROPHILS 61 % (42.0-75.2); PLATELET ESTIMATE DECREASED (NORMAL)
--- NOTE | 2023-07-19 08:45 | NUR ---
PT RESTING IN BED WITH PAIN /10 IN ADBOMEN. PAIN MEDICATION PROVIDED PER EMAR. ECCYMOSIS TO BILATERAL ARMS, RIGHT BUTTOCK, AND LEFT INNER THIGH. SKIN CUT ON COCCYX COVERED WITH MEPOLEX DRESSING. PICC LINE PATENT AND DRAWS BACK. NO NEEDS AT THIS TIME. WILL CONTINUE TO MONITOR.
--- NOTE | 2023-07-19 12:30 | NUR ---
utilities ground worker was notified by Dr. Padilla, patient would not be ready to discharge until 3:30-4 pm. utilities ground worker sent clinical updates to Tameka Ortiz at [facility]. utilities ground worker contacted Tameka and asked if they would be able to transport patient to [facility] around 3:30 pm. Tameka expressed they would be unable to transport that late in the day, the latest would be 2 pm. utilities ground worker expressed patient would not be ready until around 3-3:30 pm, so they would look at discharge tomorrow. utilities ground worker notified Dr. Padilla that [facility] would be unable to accept today and asked he see patient in the morning, so her discharge could be earlier in the morning. utilities ground worker notified patient that her discharge will not be until tomorrow due to her treatment. utilities ground worker notified nursing department and unit assistant. Discharge Plan: [facility]
--- NOTE | 2023-07-19 16:04 | NUR ---
DR RUSSELL CALLED AND VERBAL ORDERS PROVIDED TO DC PICC LINE. ORDERS PLACED.
--- NOTE | 2023-07-19 20:00 | NUR ---
PT A&O BUT INTERMITENTLY CONFUSED SITTING IN RECLINER. C/O ABD PAIN 05/26 - GIVEN PRN SEE MAR. CONTINUES TO HAVE LOOSE BLOODY STOOLS. PICC TO RIGHT UPPER ARM WITH BLOOD RETURN. CHAIR ALARM ON & CALL LIGHT IN REACH. DENYING FURTHER NEEDS AT THIS TIME.
[2023-07-20] VITALS (7 sets, daily range): BP systolic 143–152; BP diastolic 64–69; PULSE 75–88; TEMP 98.2–99
[2023-07-20 06:28] LABS: ALBUMIN 1.7 gm/dL (3.4-4.8); CALCIUM 7.8 mg/dL (8.4-10.2); CREATININE, serum 0.72 mg/dL (0.57-1.11); MAGNESIUM 1.7 mg/dL (1.6-2.6); PHOSPHOROUS 2.6 mg/dL (2.3-4.7); POTASSIUM 3.6 mmol/L (3.5-4.5)
[2023-07-20 06:29] LABS: MEAN CELL VOLUME 89 fl (80.0-100.0); MEAN CORPUSCULAR HGB CONC 35 g/dl (33.0-37.0); PLATELET COUNT 145 K/mm3 (130-400); RED BLOOD COUNT 3.07 M/mm3 (4.10-5.30); REDCELL DISTRIBUTION WIDTH-CV 15.9 % (11.5-14.5)
[2023-07-20 06:33] LABS: HEMATOCRIT 27.2 % (37.0-47.0); HEMOGLOBIN 9.6 g/dl (12.5-16.0); MEAN CORPUSCULAR HEMOGLOBIN 31 pg (27-31)
[2023-07-20 07:28] LABS: BAND 16 % (0-10); LYMPHOCYTE 11 % (20.0-51.0); NEUTROPHILS 61 % (42.0-75.2); PLATELET ESTIMATE NORMAL (NORMAL)
[2023-07-20] MEDS ORDERED: NATURAL MAGNES200 MG PO (08:22)
--- NOTE | 2023-07-20 10:56 | NUR ---
PATIENT IN BED. PICC TO RIGHT UPPER ARM, FLUSHES WELL WITH GOOD BLOOD RETURN. PATIENT VOIDING. GENERALIZED BRUISING OVER BODY. DRESSING TO COCCYX. SMALL CUT TO RIGHT GLUTEAL FOLD. PATIENT RESTING IN BED EATING BREAKFAST. CALL LIGHT IN REACH, BED ALARM ON.
--- NOTE | 2023-07-20 11:29 | NUR ---
sort line worker sent clinical updates for patient to [facility]. [facility] expressed they would be able to accept today and set a transport time for 11:15 AM. sort line worker notified nursing and community center worker. sort line worker met with patient to review important message from Medicare. Patient verbalized understanding and signed form. sort line worker made a copy, placed original in the file and provided a copy to the patient. sort line worker attempted to contact patient's , LICHA, but the number was incorrect. sort line worker contacted patient's son, Joseluis, whom gave the P# [phone] for his father, LICHA. Joseluis expressed his father already is aware of patient's discharge time but at an appointment. sort line worker expressed LICHA could follow her to [facility]. Discharge plan: [facility]
--- NOTE | 2023-07-20 11:38 | NUR ---
PICC LINE REMOVED BY [facility]. PATIENT WAS ABLE TO LIE FLAT FOR 30MINUTES. TOLERATED WELL. PATIENT DRESSED/CHANGED TO PREPARE FOR TRANSPORT. PATIENT AND BELONGINGS PACKED UP AND PACKET GIVEN TO TRANSPORTER. REPORT CALLED TO CAMMIE [facility].
== END 2023-07-20 11:39 | DRG 391 ==
LOC: COL.ER 13:54 → ICU 17:30 → EDBEDREQ 17:38 → SURG 07-15 13:01
PROVIDERS: Internal Medicine; Physician Assistant; ADMIT Internal Medicine
PROC: 02HV33Z Insertion of Infusion Device into Superior Vena Cava, Percutaneous Approach (ICD-10-PCS; principal; 2023-07-14)
DX: K52.9 Noninfective gastroenteritis and colitis, unspecified (principal); I21.A1 Myocardial infarction type 2; L89.154 Pressure ulcer of sacral region, stage 4; N17.9 Acute kidney failure, unspecified; E87.0 Hyperosmolality and hypernatremia; Z20.822 Contact with and (suspected) exposure to COVID-19; I95.9 Hypotension, unspecified; R11.0 Nausea; E78.5 Hyperlipidemia, unspecified; I10 Essential (primary) hypertension; E87.6 Hypokalemia
CPT/HCPCS: A4314; C1751; C1892; C9113; J2543; J3475; J7030; J7050; J7120; Q9967

== ENCOUNTER → 2024-01-24 | Outpatient (CLI) | payer MEDICARE, BC ==
[~2024-01-24] MED LIST changes: +ANTI-DIARRHEAL2 MG PO; +CEFTIN500 MG PO; +KRILL OIL 5001 EACH PO; +NATURAL MAGNES200 MG PO
== END ==
LOC: COL.VAS 10:00
DX: I34.0 Nonrheumatic mitral (valve) insufficiency (principal); I50.32 Chronic diastolic (congestive) heart failure